=== PATIENT | female | born 1995 | race Hispanic/Latino ===

== ENCOUNTER 2023-05-21 22:09 | Emergency (ER) | payer SELFPAY ==
[2023-05-21 22:22] VITALS: BP 108/69; PULSE 105; RESP 18; TEMP 37.2; O2SAT 99; BMI 22.1
[2023-05-21] MEDS: ONDANSETRON 4 MG ODT SL (22:24)
--- NOTE | 2023-05-21 22:58 | ED.NAVMDI ---
HPI - Nausea/Vomiting/Diarrhea General Chief complaint: Nausea/Vomiting/Diarrhea Stated complaint: vomiting since 1700,can't keep anything down Time Seen by Provider: 05/21/23 22:15 Source: patient Mode of arrival: Ambulatory History of Present Illness HPI Narrative: 28-year-old female with no reported medical history presents for several hours of nausea and vomiting. Patient states that she thinks she may have eaten some bad lumpia prior to symptom onset. Reports intermittent abdominal spasming. Related Data Previous Rx's Medication Instructions Recorded ondansetron 4 mg disintegrating 4 mg PO Q8H PRN nausea and 05/21/23 tablet vomiting #30 tabs Allergies Allergy/AdvReac Type Severity Reaction Status Date / Time No Known Drug Allergies Allergy Verified 05/21/23 22:22 Review of Systems Review of Systems Narrative: Negative except as noted above Patient History Social History Smoking Status: Never smoker Smoking Status: Never smoker Substance Use Type: marijuana Exam Initial Vital Signs Initial Vital Signs: Vital Signs Temperature 98.9 F 05/21/23 22:22 Pulse Rate 105 H 05/21/23 22:22 Respiratory Rate 18 05/21/23 22:22 Blood Pressure 108/69 05/21/23 22:22 Pulse Oximetry 99 05/21/23 22:22 Oxygen Delivery Method Room Air 05/21/23 22:22 Const: Awake, alert, no acute distress, nontoxic appearing GI: Soft, nontender, nondistended, no rebound, no guarding Skin: Warm, Dry, intact, no rashes Neuro: AO x3, CN II-XII grossly intact, moves all extremities Course Orders Ordered: ED Orders 05/21/23 22:51 Urine Microscopic Stat Discontinued Medications Ondansetron HCl (Ondansetron 4 Mg Odt) 4 mg SL NOW ONE Stop: 05/21/23 22:20 Last Admin: 05/21/23 22:24 Dose: 4 mg Documented By: Ondansetron HCl (Ondansetron 4 Mg Odt Prepack) 1 bottle MISC DIRECTED ONE Stop: 05/21/23 23:50 Last Admin: 05/21/23 23:54 Dose: 1 bottle Documented By: AB Vital Signs Vital signs: Vital Signs - 8 hr 05/21/23 22:22 05/21/23 23:55 Temperature 98.9 F Pulse Rate 105 H 93 H Respiratory Rate 18 Blood Pressure 108/69 104/66 Pulse Oximetry 99 97 Oxygen Delivery Method Room Air Room Air MDM - Nausea/Vomiting/Diarrhea Lab Data Labs: Lab Results 05/21/23 Range/Units 22:51 Urine RBC 1-5/hpf (0-5/HPF) Urine WBC 1-5/hpf (0-5/HPF) Ur Squamous Epith Cells 5-10 /hpf H (0-5/HPF) Urine Bacteria Few (2-10) H (None) Urine Mucus 2+ H (Negative) Ur Culture Indicated? Cult not indicated Vol Urine Centrifuged 10ml (spun) Point of Care Testing Test Results Negative Urine Dip Bedside Urine Glucose Negative Bedside Urine Bilirubin - Negative Bedside Urine Ketone + 15 Urine Specific [place] 1.030 Bedside Urine Occult Blood ++ Bedside Urine pH 5.5 Bedside Urine Protein + 30 Bedside Urine Urobilinogen - Negative Bedside Urine Nitrite - Negative Bedside Urine Leukocytes - Negative Esterase MDM Narrative Medical decision making narrative: Well-appearing patient with 5 hours of nausea and vomiting, possibly after eating bad lumpia. Abdomen is soft, no reproducible tenderness to palpation, vital signs are unremarkable, no ketones on urinalysis. Based on the short duration of symptoms as well as benign physical exam no blood work or imaging indicated at this time. Patient given sublingual Zofran, subsequently able to tolerate p.o.. Patient counseled to follow up brat diet, Zofran prescription sent to pharmacy of choice. Since it was currently after pharmacy hours a prepack of Zofran was sent home with the patient. Discharge Plan Departure Patient Disposition: Home Clinical Impression: Acute vomiting Instructions: DI for Vomiting -- Adult Activity Restrictions/Additional Instructions: Stick to a light diet over the next day to avoid worsening your nausea. Prescriptions: New ondansetron 4 mg tablet,disintegrating 4 mg PO Q8H PRN (Reason: nausea and vomiting) Qty: 30 0RF Referrals: Miscellaneous,Doctor, [Primary Care Provider] - Stand Alone Forms: Patient Portal/API, Work Release Note
[2023-05-21 23:00] LABS: Bacteria Urine Few (2-10); RBC Urine 1-5/HPF (0-5/HPF); Urine Volume 10mL (spun); WBC Urine 1-5/HPF (0-5/HPF)
[2023-05-21 23:01] LABS: Mucus Urine 2+ (Negative); Squamous Epithelial Cell Urine 5-10 /HPF (0-5/HPF)
[2023-05-21 23:02] LABS: Culture Indicated Urine Cult Not Indicated
[2023-05-21] MEDS: ONDANSETRON 4 MG ODT PREPACK 1 BOTTLE MISC (23:54)
[2023-05-21 23:55] VITALS: BP 104/66; PULSE 93; O2SAT 97
--- NOTE | 2023-05-21 23:58 | PC.NURSE ---
PO Challenge at 2315, 120 ml ice water. Passed
== END 2023-05-21 23:58 | disposition home or self-care (01) ==
PROVIDERS: Emergency Provider Emergency Medicine
DX: R11.2 Nausea with vomiting, unspecified (principal)
CPT/HCPCS: 81003; 81015; 81025; 99283